=== PATIENT | male | born 1975 | race Caucasian/White ===

== ENCOUNTER 2020-10-25 22:23 | Emergency (ER) | payer OTHER, SELFPAY ==
[2020-10-25 22:33] VITALS: BP 140/92; PULSE 98; RESP 18; TEMP 36.6; O2SAT 98; BMI 38.7
--- NOTE | 2020-10-25 22:56 | ED_ITS ---
HPI - General Adult General: Chief complaint: General Medical Stated complaint: L SHOULDER PAIN,SHOOTING HEAT DOWN ARM,HAND ICY Time Seen by Provider: 10/25/20 22:41 History of Present Illness: HPI narrative: Patient states just got here from [place]. Having some shoulder arm pain. He has a history of this. Flared up last couple days and has hurt worse today. Patient has pain with range of motion his arm movement of his neck. Denies shortness of breath neuro problems chest pains. His mom just had a stroke and that is why he is up here visiting and he does have concerns of stroke due to this recent event in his life. Onset (ago): day(s) Location: upper extremity Radiation: neck and extremity Severity: mild Severity scale (1-10): 2 Quality: burning and aching Pain Consistency: intermittent Relieving factors: immobilization Exacerbating factors: movement Associated symptoms: Reports no associated symptoms; Deny chest pain, dyspnea, headache(s), nausea, rash or vomiting Treatments prior to arrival: none Review of Systems Const: Denies: fever(s), chills or body aches Eyes: Denies: change in vision or blurry vision ENMT: Denies: throat pain or nasal congestion Card: Denies: chest pain or dyspnea on exertion Resp: Denies: dyspnea, productive cough or non-productive cough GI: Denies: abdominal pain, nausea or vomiting : Denies: difficulty urinating Musc: Reports: neck pain (Says his neck hurts with range of motion), extremity pain (Complains of pain down left arm with range of motion) and other (His hands felt cold at different times.) Skin/Breast: Denies: rash Neuro: Denies: headache(s) Psych: Denies: anxiety or depression Ayan/Lymph: Denies: easy bruising Physical Exam Const: COMMON NORMALS: no acute distress, average body habitus and patient oriented x3 HENMT: COMMON NORMALS: normocephalic HEAD & SCALP: normal to inspection and normocephalic FACE & SINUS: normal facial exam Eye: COMMON NORMALS: conjunctivae normal GENERAL EYE: appearance normal, both eyes and all related structures CONJUNCTIVA: Yes conjunctivae normal Neck/C-Spine: COMMON NORMALS: no JVD Chest: COMMONS NORMALS: normal inspection of the chest Resp: COMMON NORMALS: normal respiratory effort and clear to auscultation bilaterally AUSCULTATION: clear to auscultation bilaterally Cardio: COMMON NORMALS: no JVD, regular rate and regular rhythm RATE: regular rate RHYTHM: regular rhythm GI: COMMON NORMALS: Normal to inspection, nondistended, normoactive bowel sounds present Back/Pelvis: OTHER: Pain to left trapezius with palpation resistive arm test superior and inferior. Pain with range of motion of his neck that extends down left arm. His left arm has good neurovascular status. Good movement hand feels warm. Does have pain along the nerve from the neck down the arm to about elbow area. Has good range of motion. Extremity: COMMON NORMALS: normal to inspection and full ROM Neuro: COMMON NORMALS: patient oriented x3, moves all extremities, no focal motor deficits and no sensory deficits noted Course Vital Signs: Vital signs: Vital Signs Temperature 97.8 F 10/25/20 22:33 Pulse Rate 98 10/25/20 22:33 Respiratory Rate 18 10/25/20 22:33 Blood Pressure 140/92 10/25/20 22:33 Pulse Oximetry 98 10/25/20 22:33 MDM - General Adult MDM Narrative: Medical decision making narrative: Patient did not have any stroke or cardiac-like symptoms. He has musculoskeletal pain in his left trapezius radiates down the arm. He does have pain with range of motion patient has a history of this. Patient will follow up with his primary care provider when gets home. Discharge Plan Discharge Patient Disposition: Home Clinical Impression: Cervical radiculopathy Condition: Stable Prescriptions: New prednisone 20 mg tablet 20 mg PO DAILY Qty: 7 RF: 0 Celebrex 100 mg capsule 100 mg PO BID Qty: 20 RF: 0 Discharge Orders: Discharge ED (Routine); Ordered 10/25/20 Ordered By: Dread Monique Discharge Diet: Usual diet Discharge Activity: Increase activity as tolerated Patient Instructions: Cervical Radiculopathy (ED) Activity Restrictions/Additional Instructions: Follow-up with medical provider as directed. Take medications as prescribed. Return to the ER or your medical provider if condition worsens. Please read and understand discharge instructions. If any questions ask please. Alternate moist heat and ice to shoulder neck area. Coding Level of Care Code ED Sales Order Specialist for Manny Fwd Exam Comprehensive
[2020-10-26] MEDS: ketorolac 60 mg/2 mL INJ IM (00:39)
[2020-10-26] MEDS: triamcinolone 40 mg/mL SDV IM (00:41)
== END 2020-10-26 01:17 | disposition home or self-care (01) ==
PROVIDERS: Emergency Provider Nurse Practitioner Family
DX: M54.12 Radiculopathy, cervical region (principal)
CPT/HCPCS: 96372; 99283; J1885; J3301